=== PATIENT | female | born 1960 | race Two or more races ===

== ENCOUNTER 2024-11-21 21:41 | Inpatient (IN) | payer MEDICAID, OTHER ==
[~2024-11-21] VITALS: Ht 160 cm; Wt 58.0 kg
--- NOTE | 2024-11-21 22:30 | ED.PDOC ---
History of Present Illness HPI Comments 64 y/o F, with a history of DM, HLD, and HTN, presents with c/o hyperglycemia, today. Patient is a [place] speaker and endorses on checking and noticing her blood glucose levels being elevated, this evening, with a highest recorded value of "448." She comments on recent increase in her insulin from 26 to 30 units in addition to being instructed to to take it at night rather in the morning as before. Patient reports being asymptomatic aside from bilateral shoulder stiffness and tingling sensation to her fingers. She denies any polyuria, polydipsia, polyphagia, fever, chills, or other associated symptoms or modifiers at this time. Chief Complaint: Hyperglycemia Time Seen by MD: 22:15 Reviewed Notes: Nurses Notes, Medications, Allergies Allergies: Coded Allergies: NO KNOWN ALLERGIES (Unverified , 11/21/24) Home Meds Active Scripts Ciprofloxacin Hcl (Cipro) 500 Mg Tab, 1 TAB PO BID for 7 Days, #14 TAB Prov:OLIVERIO BLACKMON RESIDENT 11/23/24 Insulin Glargine (Basaglar Kwikpen) 100 Unit/Ml Inj, 18 UNIT SC BID for 30 Days, #4 INJ Prov:OLIVERIO BLACKMON RESIDENT 11/23/24 Reported Medications Famotidine (Famotidine) 40 Mg Tab, 1 TAB PO DAILYPRN PRN for ACID REFLUX 11/22/24 Losartan Potassium (Losartan Potassium) 50 Mg Tab, 1 TAB PO DAILY 11/22/24 Aspirin (Aspirin Low Dose) 81 Mg Tab, 1 TAB PO DAILY 11/22/24 Pravastatin Sodium (PRAVACHOL TABLET) 20 Mg Tb, 1 TAB PO DAILY 11/22/24 Metformin Hydrochloride (Metformin Hcl) 1,000 Mg Tab, 1 TAB PO BID 11/22/24 Pioglitazone Hydrochloride (PIOGLITAZONE HCL) 15 Mg Tab, 1 TAB PO DAILY 11/22/24 Discontinued Reported Medications Insulin Glargine (Basaglar Kwikpen) 100 Unit/Ml Inj, 30 UNITS SC HS 11/22/24 Information Source: Patient Mode of Arrival: Ambulatory Severity: Moderate Timing: Hours Duration: Since onset Prehospital treatment: None Past Medical History PAST MEDICAL HISTORY: DM, High Lipids, HTN Surgical History: Denies all surgeries SAFEKEEPING CLERK History: Denies all SAFEKEEPING CLERK Hx Family History Family History: Unknown Social History Smoker: Non-Smoker Alcohol: Denies ETOH Use Drugs: Denies Drug Use Lives In: Home Endocrine: reports: others (hyperglycemia ) All Other Systems: Reviewed and Negative (negative unless otherwise stated above or in HPI) Physical Exam General Appearance: No Apparent Distress, Normal HEENT: Normal ENT Inspection, Pharynx Normal, TMs Normal Neck: Full Range of Motion, Non-Tender, Normal, Normal Inspection Respiratory: Chest Non-Tender, Lungs Clear, No Accessory Muscle Use, No Respiratory Distress, Normal Breath Sounds Cardiovascular: No Edema, No JVD, No Murmur, No Gallop, Normal Peripheral Pulses, Regular Rate/Rhythm Breast Exam: Deferred Gastrointestinal: No Organomegaly, Non Tender, No Pulsatile Mass, Normal Bowel Sounds, Soft Genitalia: Deferred Pelvic: Deferred Rectal: Deferred Extremities: No calf tenderness, Normal capillary refill, Normal inspection, Normal range of motion, Non-tender, No pedal edema Musculoskeletal : Apperance: Normal Neurologic: Alert, manager program II-XII nml as Tested, No Motor Deficits, Normal Affect, Normal Mood, No Sensory Deficits Cerebellar Function: Normal Reflexes: Normal Skin: Dry, Normal Color, Warm Lymphatic: No Adenopathy Was a procedure done? Was a procedure done?: No Differential Dx Considerations may include: hyperglycemia, inappropriate medication dosage, inappropriate medication instruction X-Ray, Labs, Meds, VS Vital Signs Date Time Temp Pulse Resp B/P (MAP) Pulse Ox O2 Delivery O2 Flow Rate FiO2 11/21/24 21:57 99.2 85 14 153/58 (89) 98 99.2 Lab Test 11/21/24 23:00 11/21/24 22:35 11/21/24 00:00 Range/Units Urine Opiates Screen Neg NEGATIVE Urine Fentanyl Screen Neg NEGATIVE Urine Barbiturates Screen Neg NEGATIVE Urine Phencyclidine Screen Neg NEGATIVE Urine Amphetamines Screen Neg NEGATIVE Urine Benzodiazepines Screen Neg NEGATIVE Urine Cocaine Screen Neg NEGATIVE Urine Cannabinoids Screen Neg NEGATIVE White Blood Count 5.7 4.4-10.8 10^3/uL Red Blood Count 3.95 L 4.0-5.20 10^6/uL Hemoglobin 11.7 L 12.2-16.2 g/dL Hematocrit 34.9 L 36.0-46.0 % Mean Corpuscular Volume 88.4 80.0-100.0 fL Mean Corpuscular Hemoglobin 29.7 28.0-32.0 pg Mean Corpuscular Hemoglobin Concent 33.5 32.0-36.0 g/dL Red Cell Distribution Width 14.1 11.8-14.3 % Platelet Count 198 140-450 10^3/uL Mean Platelet Volume 9.2 6.9-10.8 fL Neutrophils (%) (Auto) 49.3 37.0-80.0 % Lymphocytes (%) (Auto) 37.6 10.0-50.0 % Monocytes (%) (Auto) 10.6 0.0-12.0 % Eosinophils (%) (Auto) 2.0 0.0-7.0 % Basophils (%) (Auto) 0.5 0.0-2.0 % Neutrophils # (Auto) 2.8 1.6-8.6 10 ^3/uL Lymphocytes # (Auto) 2.1 0.4-5.4 10 ^3/uL Monocytes # (Auto) 0.6 0-1.3 10 ^3/uL Eosinophils # (Auto) 0.1 0-0.8 10 ^3/uL Basophils # (Auto) 0 0-0.2 10 ^3/uL Nucleated Red Blood Cells 0.0 % Sodium Level 137 136-145 mmol/L Potassium Level 3.8 3.5-5.1 mmol/L Chloride Level 103 98-107 mmol/L Carbon Dioxide Level 24 20-31 mmol/L Anion Gap 10 5-15 Blood Urea Nitrogen 13 9-23 mg/dL Creatinine 0.84 0.550-1.02 mg/dL Glomerular Filtration Rate Calc 78 >90 mL/min BUN/Creatinine Ratio 15.5 10.0-20.0 Serum Glucose 451 *H 74-106 mg/dL Calcium Level 9.9 8.7-10.4 mg/dL Urine Color Colorless Yellow Urine Clarity Clear Clear Urine pH 5.5 5.0-9.0 Urine Specific [place] 1.033 1.001-1.035 Urine Protein Negative Negative Urine Ketones Negative Negative Urine Blood Negative Negative /uL Urine Nitrite 1+ H Negative Urine Bilirubin Negative Negative Urine Urobilinogen Normal Negative mg/dL Urine Leukocyte Esterase Trace Negative /uL Urine RBC 1 0 - 4 /hpf Urine Microscopic WBC 21 H 0-5 /HPF Urine Squamous Epithelial Cells Few <5 /hpf Urine Bacteria Few H None Seen /hpf Urine Mucus Few None Seen Urine Glucose 4+ H Normal mg/dL Microbiology Date/Time Source Procedure Growth Status 11/21/24 23:00 Voided Urine Urine Culture - Final Complete Time of 1ST Reevaluation: 22:45 Reevaluation 1ST: Unchanged Patient Education/Counseling: Diagnosis, Treatment Family Education/Counseling: No Family Present Departure 1 Departure Time of Disposition: 04:59 (Patient with a complicated UTI and uncontrolled diabetes) Impression: Primary Impression: Uncontrolled diabetes mellitus Qualified Codes: E11.65 - Type 2 diabetes mellitus with hyperglycemia Additional Impression: Complicated urinary tract infection Disposition: ADMITTED INPATIENT Admit to: Med Surg Condition: Serious e-Prescriptions Ciprofloxacin Hcl (Cipro) 500 Mg Tab 1 TAB PO BID for 7 Days, #14 TAB Prov: OLIVERIO BLACKMON RESIDENT 11/23/24 Insulin Glargine (Basaglar Kwikpen) 100 Unit/Ml Inj 18 UNIT SC BID for 30 Days, #4 INJ Prov: OLIVERIO BLACKMON RESIDENT 11/23/24 Critical Care Note Critical Care Time?: No Stability Stability form required: No Heart Score Heart Score: Heart Score Response (Comments) Value History N/A 0 EKG N/A 0 Age N/A 0 Risk Factors N/A 0 Troponin N/A 0 Total 0 I personally scribed for HANNAH BERMEO MD ([email or web address]) on 11/21/24 at 22:30. Electronically submitted by Augie Bean ([email or web address]). HANNAH BERMEO MD Nov 21, 2024 22:30
[2024-11-21 22:48] LABS: Basophils # (auto) 0 10 ^3/uL (0-0.2); Basophils % (auto) 0.5 % (0.0-2.0); Eosinophils # (auto) 0.1 10 ^3/uL (0-0.8); Hematocrit 34.9 % (36.0-46.0); Hemoglobin 11.7 g/dL (12.2-16.2); Lymphocytes # (auto) 2.1 10 ^3/uL (0.4-5.4); Lymphocytes % (auto) 37.6 % (10.0-50.0); Mean Corpuscular Hemoglobin 29.7 pg (28.0-32.0); Mean Corpuscular Hgb Conc. 33.5 g/dL (32.0-36.0); Mean Corpuscular Volume 88.4 fL (80.0-100.0); Monocytes # (auto) 0.6 10 ^3/uL (0-1.3); Monocytes % (auto) 10.6 % (0.0-12.0); Neutrophils # (auto) 2.8 10 ^3/uL (1.6-8.6); Neutrophils % (auto) 49.3 % (37.0-80.0); Platelet Count (auto) 198 10^3/uL (140-450); Red Blood Cells 3.95 10^6/uL (4.0-5.20); Red Cell Distribution Width 14.1 % (11.8-14.3); White Blood Cell 5.7 10^3/uL (4.4-10.8)
[2024-11-21 22:55] LABS: Chloride 103 mmol/L (98-107); Potassium 3.8 mmol/L (3.5-5.1); Sodium 137 mmol/L (136-145)
[2024-11-21 22:56] LABS: Anion Gap 10 (5-15); Carbon Dioxide 24 mmol/L (20-31)
[2024-11-21 22:57] LABS: Calcium 9.9 mg/dL (8.7-10.4)
[2024-11-21 23:01] LABS: BUN/Creatinine Ratio 15.5 (10.0-20.0); Blood Urea Nitrogen 13 mg/dL (9-23)
[2024-11-21 23:09] LABS: Glucose 451 mg/dL (74-106)
[2024-11-22] VITALS (7 sets, daily range): BP systolic 93–123; BP diastolic 45–67; PULSE 60–89; RESP 16–18; TEMP 97.7–99; O2SAT 87–100
[2024-11-22] MEDS ORDERED: ACETAMINOPHEN 325 MG TAB PO PRN (02:45)
[2024-11-22] MEDS ORDERED: HYDROcodone-ACET 5/325MG TAB PO PRN (02:45)
[2024-11-22] MEDS ORDERED: DEXTROSE (50%) 50ML SYRG IV PRN (02:45)
--- NOTE | 2024-11-22 02:54 | DVHHPRES ---
History of Present Illness Resident Creating Document: KELLY CASTREJON RESDIENT History of Present Illness This is a 64-year-old female with past medical history of diabetes type 2, dyslipidemia, hypertension who presents to ED with chief complaint of due to body shaking, blurry vision, headache and dizziness since 2 days. She also reports urinary frequency and fever. Per patient, she has a poorly controlled diabetes type 2, 2 weeks back her insulin was increased from 26 units to 30 units and shifted from morning time to evening time. Today, she checked her glucose at home which was 448 and prompted this visit. She denies nausea, vomiting, chest pain, shortness of breath, abdominal pain, or any sick contact. PMHx: Diabetes type 2, dyslipidemia, hypertension PSHx: Appendectomy Family history: Noncontributory Social history: Lives with the daughter at home, denies smoking and any other drug use Home medication: Lantus 30 units, Jardiance, pioglitazone, metformin, losartan, aspirin, simvastatin, famotidine Allergic history: No known other Patient seen and examined at the bedside. The patient is still complained of dizziness. Review of Systems Review of Systems General: Reports fever HEENT: Reports blurry vision Cardiovascular: Denies chest pain, palpitations, dyspnea on exertion, orthopnea, or claudication. Respiratory: No cough, and wheezing. Gastrointestinal: Denies nausea, vomiting, dysphagia, odynophagia, heartburn, abdominal pain, flatulence, bloating, diarrhea, constipation, change in stool, o r blood in stool. Genitourinary: Reports frequency Endocrine: No heat or cold intolerance, polydipsia, polyuria, and polyphagia. Neurological: Reports dizziness Psychiatric: Denies depression, anxiety,or insomnia. Musculoskeletal: Denies neck pain, stiffness and swelling, back pain, muscle weakness, joint pain, stiffness, swelling, or limited range of motion. Skin: No rashes, itching, skin lesion, changes in hair, nail, skin texture and breast. Hematologic/Lymphatic: Denies easy bruising, bleeding tendencies, or lymph node enlargement. Allergies: Coded Allergies: NO KNOWN ALLERGIES (Unverified , 11/21/24) Exam Vital Signs Vital Signs Date Time Temp Pulse Resp B/P (MAP) Pulse Ox O2 Delivery O2 Flow Rate FiO2 11/21/24 21:57 99.2 85 14 153/58 (89) 98 99.2 Exam General Appearance: Alert, Oriented X3, Cooperative, No acute distress HEENT: Atraumatic, PERRLA, EOMI, Mucous membrane dry, moist/pink Respiratory: Clear to auscultation, Normal air movement Cardiovascular: Regular rate, Normal S1, Normal S2, No murmurs, no chest wall tenderness Abdominal: Normal bowel sounds, Soft, No tenderness, No hepatospenomegaly, No masses Extremities: No clubbing, No cyanosis, No edema, Normal pulses, No tenderness/swelling Skin: No rashes, No breakdown, No significant lesion Neuro: Normal gait, Normal speech, Strength at 5/5 X4 ext, Normal tone, Sensation intact, Cranial nerves 3-12 NL, Reflexes 2+ Psych/Mental Status: Mental status NL, Mood NL Labs/Xrays Labs Test 11/21/24 22:35 11/21/24 00:00 Range/Units White Blood Count 5.7 4.4-10.8 10^3/uL Red Blood Count 3.95 L 4.0-5.20 10^6/uL Hemoglobin 11.7 L 12.2-16.2 g/dL Hematocrit 34.9 L 36.0-46.0 % Mean Corpuscular Volume 88.4 80.0-100.0 fL Mean Corpuscular Hemoglobin 29.7 28.0-32.0 pg Mean Corpuscular Hemoglobin Concent 33.5 32.0-36.0 g/dL Red Cell Distribution Width 14.1 11.8-14.3 % Platelet Count 198 140-450 10^3/uL Mean Platelet Volume 9.2 6.9-10.8 fL Neutrophils (%) (Auto) 49.3 37.0-80.0 % Lymphocytes (%) (Auto) 37.6 10.0-50.0 % Monocytes (%) (Auto) 10.6 0.0-12.0 % Eosinophils (%) (Auto) 2.0 0.0-7.0 % Basophils (%) (Auto) 0.5 0.0-2.0 % Neutrophils # (Auto) 2.8 1.6-8.6 10 ^3/uL Lymphocytes # (Auto) 2.1 0.4-5.4 10 ^3/uL Monocytes # (Auto) 0.6 0-1.3 10 ^3/uL Eosinophils # (Auto) 0.1 0-0.8 10 ^3/uL Basophils # (Auto) 0 0-0.2 10 ^3/uL Nucleated Red Blood Cells 0.0 % Sodium Level 137 136-145 mmol/L Potassium Level 3.8 3.5-5.1 mmol/L Chloride Level 103 98-107 mmol/L Carbon Dioxide Level 24 20-31 mmol/L Anion Gap 10 5-15 Blood Urea Nitrogen 13 9-23 mg/dL Creatinine 0.84 0.550-1.02 mg/dL Glomerular Filtration Rate Calc 78 >90 mL/min BUN/Creatinine Ratio 15.5 10.0-20.0 Serum Glucose 451 *H 74-106 mg/dL Calcium Level 9.9 8.7-10.4 mg/dL Urine Color Colorless Yellow Urine Clarity Clear Clear Urine pH 5.5 5.0-9.0 Urine Specific [place] 1.033 1.001-1.035 Urine Protein Negative Negative Urine Ketones Negative Negative Urine Blood Negative Negative /uL Urine Nitrite 1+ H Negative Urine Bilirubin Negative Negative Urine Urobilinogen Normal Negative mg/dL Urine Leukocyte Esterase Trace Negative /uL Urine RBC 1 0 - 4 /hpf Urine Microscopic WBC 21 H 0-5 /HPF Urine Squamous Epithelial Cells Few <5 /hpf Urine Bacteria Few H None Seen /hpf Urine Mucus Few None Seen Urine Glucose 4+ H Normal mg/dL Assessment/Plan Assessment/Plan Complicated UTI UA presents positive nitrites, esterase and white blood cells Stopped Jardiance, due to UTI Urine culture Empiric antibiotic, ceftriaxone IV fluid Uncontrolled diabetes type 2, with simple hyperglycemia (hemoglobin A1c 13.6%) Lantus 30 units Insulin according to moderate SS Discontinued p.o. medication since patient is admitted in the hospital. Hypertension Dyslipidemia Continue medicine, losartan and atorvastatin Mild anemia, normocytic normochromic Monitor H&H DIET: Diabetic diet DVT PROPHYLAXIS: Prophylactic Lovenox GI PROPHYLAXIS:: Protonix CODE STATUS: Goal of care discussed for more than 21 minutes, DNR DISPOSITION: Med/surg Patient's status and plan discussed with the patient and the patient's granddaughter at the bedside. Case discussed with Dr. Bates. Plan discussed with: Patient, Other (RN) My Orders Orders - KELLY CASTREJON RESDIAGNES Procedure Category Date Status Time Admit ADMIT 11/22/24 Transmitted 02:45 Code Status CODE 11/22/24 Transmitted 02:45 Vital Signs BIGG 11/22/24 Transmitted 02:45 Review Orders With [facility] 11/22/24 Transmitted Adm. 02:45 Consistent DIET 11/22/24 Transmitted Carb(Ccho)Diabetes Breakfast Acetaminophen Tablet PHA 11/22/24 Transmitted (Tylenol Tablet) 02:45 Notify Md Of Changes [facility] 11/22/24 Transmitted From Base 02:45 Advance Directive BIGG 11/22/24 Transmitted 02:45 Basic Metabolic Panel LAB 11/22/24 Transmitted 02:45 Complete Blood Count LAB 11/22/24 Transmitted 02:45 Lipid Panel LAB 11/22/24 Transmitted 02:45 Urine Bacterial GREGORIA 11/22/24 Transmitted Culture 02:45 Patient Condition ORDERS 11/22/24 Transmitted 02:45 Allergies BIGG 11/22/24 Transmitted 02:45 Hydrocodone-Acet PHA 11/22/24 Transmitted 5/325mg Tab ([place] 02:45 Drug Screen LAB 11/22/24 Transmitted 02:45 Hemoglobin A1c LAB 11/22/24 Transmitted 02:45 Lovenox 40mg PHA 11/22/24 Transmitted 10:00 Stat Ekg For Chest BIGG 11/22/24 Transmitted Pain 02:45 Notify Md Of Changes [facility] 11/22/24 Transmitted From Base 02:45 Insulin Lantus PHA 11/22/24 Transmitted (Glargine) (Lantus) 22:00 Insulin Lantus PHA 11/22/24 Transmitted (Glargine) (Lantus) 02:45 Metformin PHA 11/22/24 Transmitted Hydrochloride 02:45 Metformin PHA 11/22/24 Transmitted Hydrochloride 08:00 Pioglitazone Hcl PHA 11/22/24 Transmitted Tablet (Actos Tablet) 10:00 Pioglitazone Hcl PHA 11/22/24 Transmitted Tablet (Actos Tablet) 02:45 Losartan Tablet PHA 11/22/24 Transmitted (Cozaar Tablet) 10:00 Aspirin Tablet PHA 11/22/24 Transmitted 02:45 Aspirin Tablet PHA 11/22/24 Transmitted 10:00 Pantoprazole PHA 11/22/24 Transmitted (Protonix) 10:00 Ceftriaxone Ivpb PHA 11/22/24 Transmitted Rocephin 09:00 Glucose Blood PHA 11/22/24 Transmitted (Accu-Chek Comfort 07:00 Bedtime Insulin Scale PHA 11/22/24 Transmitted 22:00 Moderate Insulin Ss PHA 11/22/24 Transmitted 07:00 Dextrose 50% Syringe PHA 11/22/24 Transmitted 02:45 Accucheck BD 11/22/24 Transmitted 02:45 Electrocardigram EKG 11/22/24 Transmitted 02:45 Magnesium LAB 11/22/24 Transmitted 02:45 Drug Screen LAB 11/22/24 Transmitted 02:45 Date of Service: Nov 22, 2024 Billing Provider: AZALEA BATES MD Common Visit Codes: [id number] INP/OBS CARE (HIGH) KELLY CASTREJON RESDIENT Nov 22, 2024 02:54 LORENZO LABOY RESIDENT Nov 22, 2024 05:13 AZALEA BATES MD Nov 22, 2024 18:02
[2024-11-22] MEDS: SODIUM CHLORIDE 0.9% 1,000 ML IV ONE (02:57)
[2024-11-22] MEDS: InsuLIN REG 1unit/0.01ml Soln (100units/ml) IV ONE (03:13)
[2024-11-22 03:37] LABS: Amphetamine Screen, Urine Neg (NEGATIVE); Barbiturate Scree,Urine Neg (NEGATIVE); Benzodiazephine Screen, Urine Neg (NEGATIVE); Cannabinoid Screen, Urine Neg (NEGATIVE); Cocaine Screen, Urine Neg (NEGATIVE); Opiate Scree,Urine Neg (NEGATIVE); Phencyclidine Screen, Urine Neg (NEGATIVE)
[2024-11-22] MEDS: cefTRIAXone 1GM/50ML D5W 50 ML IV ONE (04:09)
[2024-11-22] MEDS: metFORMIN HYDROCHLORIDE 500 MG TAB PO ONE (04:09)
[2024-11-22] MEDS: PIOGLITAZONE HYDROCHLORIDE 30 MG TAB PO ONE (04:09)
[2024-11-22] MEDS: ASPirin 81 mg TAB PO ONE (04:09)
[2024-11-22] MEDS: INSULIN LANTUS (GLARGINE) 1 /0.01ml (100units/ml) SC ONE (04:10)
[2024-11-22] MEDS: ATORVASTATIN 20 MG TAB PO ONE (04:10)
[2024-11-22 04:19] LABS: Basophils # (auto) 0 10 ^3/uL (0-0.2); Basophils % (auto) 0.4 % (0.0-2.0); Eosinophils # (auto) 0.1 10 ^3/uL (0-0.8); Eosinophils % (auto) 2.2 % (0.0-7.0); Hematocrit 34.2 % (36.0-46.0); Lymphocytes # (auto) 2.6 10 ^3/uL (0.4-5.4); Lymphocytes % (auto) 43.9 % (10.0-50.0); Mean Corpuscular Hemoglobin 28.3 pg (28.0-32.0); Mean Corpuscular Hgb Conc. 32.3 g/dL (32.0-36.0); Mean Corpuscular Volume 87.8 fL (80.0-100.0); Monocytes # (auto) 0.6 10 ^3/uL (0-1.3); Monocytes % (auto) 10.2 % (0.0-12.0); Neutrophils # (auto) 2.5 10 ^3/uL (1.6-8.6); Neutrophils % (auto) 43.3 % (37.0-80.0); Nucleated Red Blood Cells % 0.1 %; Platelet Count (auto) 192 10^3/uL (140-450); Red Blood Cells 3.89 10^6/uL (4.0-5.20); Red Cell Distribution Width 13.8 % (11.8-14.3); White Blood Cell 5.8 10^3/uL (4.4-10.8)
[2024-11-22 04:38] LABS: BUN/Creatinine Ratio 15.1 (10.0-20.0); Blood Urea Nitrogen 11 mg/dL (9-23)
[2024-11-22 04:39] LABS: LDL Cholesterol 70 mg/dL (< 100); Magnesium 1.7 mg/dL (1.6-2.6)
[2024-11-22 04:40] LABS: Cholesterol 137 mg/dL (< 200); HDL Cholesterol 46 mg/dL (40-59)
[2024-11-22 04:41] LABS: Sodium 142 mmol/L (136-145)
[2024-11-22 04:43] LABS: Anion Gap 8 (5-15)
[2024-11-22 04:46] LABS: Carbon Dioxide 25 mmol/L (20-31); Chloride 109 mmol/L (98-107); Potassium 3.5 mmol/L (3.5-5.1)
[2024-11-22 04:48] LABS: Glucose 212 mg/dL (74-106); Triglycerides 150 mg/dL (< 150)
[2024-11-22] MEDS: POTASSIUM EFFERVESENT TAB 25 MEQ PO ONE (05:25)
[2024-11-22] MEDS: MAGNESIUM SULFATE 1GM/100ML 100 ML IV ONE (05:25)
[2024-11-22] MEDS: SODIUM CHLORIDE 0.9% 1,000 ML IV SCH (05:32)
[2024-11-22] MEDS ORDERED: METF-372 PO (06:23)
[2024-11-22] MEDS ORDERED: LOSA-534 PO (06:23)
[2024-11-22] MEDS ORDERED: PIOG1TAB36 PO (06:23)
[2024-11-22] MEDS ORDERED: PRAV20TA3 PO (06:23)
[2024-11-22] MEDS ORDERED: ASPI-325 PO (06:23)
[2024-11-22] MEDS ORDERED: FAMO40TA7 PO (06:23)
[2024-11-22] MEDS ORDERED: INSU1INJ19 SC (06:25)
[2024-11-22] MEDS: InsuLIN REG 1unit/0.01ml Soln (100units/ml) SC SCH ×2 (06:50→22:00)
[2024-11-22] MEDS: ACCU-CHEK COMFORT CURVE STRIP VI SCH (06:52)
[2024-11-22] MEDS ORDERED: metFORMIN HYDROCHLORIDE 500 MG TAB PO SCH (08:00)
[2024-11-22] MEDS: ENOXAPARIN SOD 40 MG/0.4 ML SYRINGE SC SCH (09:02)
[2024-11-22] MEDS: PANTOPRAZOLE 40 MG/10 ML VIAL INJ IV SCH (09:02)
[2024-11-22] MEDS: LOSARTAN POTASSIUM 25 MG TAB PO SCH (09:03)
[2024-11-22 09:11] LABS: Erythrocyte Sedimentation Rate 6 mm/hr (0-20)
--- NOTE | 2024-11-22 17:22 | DVHPNRES ---
Progress Note Date Seen: Nov 22, 2024 Resident Creating Document: OLIVERIO BLACKMON RESIDENT Has the PT tested + for MRSA If YES, has PT been informed?: No Medical Necessity Reason Pt with a Central, PICC or Fol: No Subjective Review of Systems This is a 64-year-old female with past medical history of diabetes type 2, dyslipidemia, hypertension who presents to ED with chief complaint of due to body shaking, blurry vision, headache and dizziness since 2 days. She also reports urinary frequency and fever. Per patient, she has a poorly controlled diabetes type 2, 2 weeks back her insulin was increased from 26 units to 30 units and shifted from morning time to evening time. Today, she checked her glucose at home which was 448 and prompted this visit. She denies nausea, vomiting, chest pain, shortness of breath, abdominal pain, or any sick contact. PMHx: Diabetes type 2, dyslipidemia, hypertension PSHx: Appendectomy Family history: Noncontributory Social history: Lives with the daughter at home, denies smoking and any other drug use Home medication: Lantus 30 units, Jardiance, pioglitazone, metformin, losartan, aspirin, simvastatin, famotidine Allergic history: No known other Objective vital signs Vital Sign Date Time Temp Pulse Resp B/P (MAP) Pulse Ox O2 Delivery O2 Flow Rate FiO2 11/22/24 13:00 97.9 73 16 106/61 (76) 97 97.9 11/22/24 06:41 Room Air* 0 21 Total Intake and Output 11/21/24 11/21/24 11/22/24 15:00 23:00 07:00 Intake Total 1050 ml Balance 1050 ml medications Current Medications Medications Dose Ordered Sig/Shi Route Start Time Stop Time Status Last Admin Dose Admin Acetaminophen 650 mg Q6HP PRN PO 11/22/24 02:45 Acetaminophen/ Hydrocodone Bitart 1 tab Q4HP PRN PO 11/22/24 02:45 Enoxaparin Sodium 40 mg DAILY SC 11/22/24 10:00 11/22/24 09:02 40 MG Losartan Potassium 25 mg DAILY PO 11/22/24 10:00 11/22/24 09:03 25 MG Aspirin 81 mg DAILY PO 11/23/24 10:00 Pantoprazole Sodium 40 mg DAILY IV 11/22/24 10:00 11/22/24 09:02 40 MG Ceftriaxone Sodium 50 ml @ 100 mls/hr DAILY@09 IV 11/23/24 09:00 Diagnostic Test (Pha) 1 strip ACHS 11/22/24 07:00 11/22/24 17:10 1 STRIP Insulin Human Regular HS SC 11/22/24 22:00 Insulin Human Regular AC SC 11/22/24 07:00 11/22/24 17:10 2 UNITS Dextrose 50 ml UD PRN IV 11/22/24 02:45 Atorvastatin Calcium 40 mg HS PO 11/22/24 22:00 Sodium Chloride 1,000 ml @ 60 mls/hr [id number] IV 11/22/24 05:30 11/22/24 05:32 60 MLS/HR Insulin Glargine 18 units BID@0700,2200 SC 11/23/24 10:00 Examination General Appearance: Alert, Oriented X3, Cooperative, No acute distress HEENT: Atraumatic, PERRLA, EOMI, Mucous membrane dry, moist/pink Respiratory: Clear to auscultation, Normal air movement Cardiovascular: Regular rate, Normal S1, Normal S2, No murmurs, no chest wall tenderness Abdominal: Normal bowel sounds, Soft, No tenderness, No hepatospenomegaly, No masses Extremities: No clubbing, No cyanosis, No edema, Normal pulses, No tenderness/swelling Skin: No rashes, No breakdown, No significant lesion Neuro: Normal gait, Normal speech, Strength at 5/5 X4 ext, Normal tone, Sensation intact, Cranial nerves 3-12 NL, Reflexes 2+ Psych/Mental Status: Mental status NL, Mood NL laboratory and microbiology Laboratory Tests 11/22/24 03:58 Test 11/22/24 03:58 Range/Units Serum Glucose 212 H 74-106 mg/dL Problem List/Assessment/Plan Problem List/Assessment/Plan Complicated UTI UA presents positive nitrites, esterase and white blood cells Stopped Jardiance, due to UTI Urine culture Empiric antibiotic, ceftriaxone IV fluid 60cc/h Uncontrolled diabetes type 2, with simple hyperglycemia (hemoglobin A1c 13.6%) Lantus 35 units once today, tomorrow lantus 18ui bid Insulin according to moderate SS Discontinued p.o. medication since patient is admitted in the hospital. Hypertension Dyslipidemia Continue medicine, losartan and atorvastatin Mild anemia, normocytic normochromic Monitor H&H DIET: Diabetic diet DVT PROPHYLAXIS: Prophylactic Lovenox GI PROPHYLAXIS:: Protonix CODE STATUS: Goal of care discussed for more than 21 minutes, DNR DISPOSITION: Med/surg Patient's status and plan discussed with the patient and the patient's granddaughter at the bedside. Case discussed with Dr. Carmichael Plan discussed with: Patient, Other (rn) My Orders My Orders Orders - OLIVERIO BLACKMON Procedure Category Date Status Time Insulin Lantus PHA 11/23/24 In Process (Glargine) (Lantus) 10:00 Date of Service: Nov 22, 2024 Billing Provider: KRISTINE CARMICHAEL DO Common Visit Codes: [id number] INP/OBS CARE(HIGH) OLIVERIO BLACKMON Nov 22, 2024 17:22 KRISTINE CARMICHAEL DO Dec 01, 2024 06:40
--- NOTE | 2024-11-22 20:14 | DVH ---
CHEST RADIOGRAPH Indication: dyspnea Technique: Single frontal view of the chest was obtained COMPARISON: None FINDINGS: Lines and Tubes: None Lungs: Clear Pleura: No effusion. No pneumothorax. Cardiomediastinal contours: Unremarkable Bones: Unremarkable IMPRESSION: No abnormality.
[2024-11-22] MEDS ORDERED: INSULIN LANTUS (GLARGINE) 1 /0.01ml (100units/ml) SC SCH ×2 (22:00)
[2024-11-22] MEDS: ATORVASTATIN 20 MG TAB PO SCH (22:00)
[2024-11-23] VITALS (7 sets, daily range): BP systolic 94–133; BP diastolic 47–66; PULSE 55–82; RESP 15–17; TEMP 97.4–98.8; O2SAT 90–99
[2024-11-23 06:01] LABS: Basophils # (auto) 0 10 ^3/uL (0-0.2); Basophils % (auto) 0.6 % (0.0-2.0); Eosinophils # (auto) 0.1 10 ^3/uL (0-0.8); Eosinophils % (auto) 2.4 % (0.0-7.0); Hematocrit 33.5 % (36.0-46.0); Hemoglobin 11.2 g/dL (12.2-16.2); Lymphocytes # (auto) 2.4 10 ^3/uL (0.4-5.4); Mean Corpuscular Hemoglobin 29.3 pg (28.0-32.0); Mean Corpuscular Hgb Conc. 33.6 g/dL (32.0-36.0); Mean Corpuscular Volume 87.3 fL (80.0-100.0); Monocytes # (auto) 0.6 10 ^3/uL (0-1.3); Monocytes % (auto) 9.6 % (0.0-12.0); Neutrophils # (auto) 2.8 10 ^3/uL (1.6-8.6); Neutrophils % (auto) 46.4 % (37.0-80.0); Nucleated Red Blood Cells % 0.1 %; Platelet Count (auto) 183 10^3/uL (140-450); Red Blood Cells 3.84 10^6/uL (4.0-5.20); White Blood Cell 5.9 10^3/uL (4.4-10.8)
[2024-11-23 06:15] LABS: INR 0.96 (0.9-1.15); Partial Thromboplastin Time 22.5 SEC (24.5-34.5); Prothrombin Time 10.2 sec (9.3-11.8)
[2024-11-23 06:17] LABS: Alanine Aminotransferase 13 U/L (7-40); Albumin 3.3 g/dL (3.2-4.8); Alkaline Phosphatase 68 U/L (46-116); Anion Gap 7 (5-15); BUN/Creatinine Ratio 11.6 (10.0-20.0); Calcium 8.8 mg/dL (8.7-10.4); Carbon Dioxide 24 mmol/L (20-31); Cholesterol 127 mg/dL (< 200); HDL Cholesterol 42 mg/dL (40-59); LDL Cholesterol 66 mg/dL (< 100); Magnesium 1.8 mg/dL (1.6-2.6); Sodium 140 mmol/L (136-145)
[2024-11-23 06:18] LABS: Bilirubin, Total 0.6 mg/dL (0.2-1.0)
[2024-11-23 06:20] LABS: Aspartate Aminotransferase 13 U/L (13-40); Blood Urea Nitrogen 8 mg/dL (9-23); Chloride 109 mmol/L (98-107); Glucose 219 mg/dL (74-106); Total Protein 5.4 g/dL (5.7-8.2); Triglycerides 155 mg/dL (< 150)
[2024-11-23] MEDS: cefTRIAXone 1GM/50ML D5W 50 ML IV SCH (09:24)
[2024-11-23] MEDS: ASPirin 81 mg TAB PO SCH (09:35)
[2024-11-23] MEDS: INSULIN LANTUS (GLARGINE) 1 /0.01ml (100units/ml) SC SCH (09:37)
[2024-11-23] MEDS ORDERED: CIPR-173 PO (09:47)
[2024-11-23] MEDS ORDERED: INSU1INJ19 SC (09:47)
[2024-11-23] MEDS ORDERED: PIOGLITAZONE HYDROCHLORIDE 30 MG TAB PO SCH (10:00)
[2024-11-23] MEDS: InsuLIN REG 1unit/0.01ml Soln (100units/ml) SC SCH (11:06)
[2024-11-23] MEDS: ACCU-CHEK COMFORT CURVE STRIP VI SCH (11:07)
--- NOTE | 2024-11-23 12:59 | DVHDSRES ---
Discharge Summary Date of Admission Resident Creating Document: OLIVERIO BLACKMON RESIDENT Nov 22, 2024 at 02:45 Date of Discharge: Nov 23, 2024 Admitting Diagnosis Complicated UTI Uncontrolled diabetes type 2, with simple hyperglycemia (hemoglobin A1c 13.6%) Labs/Diagnostic Data: Laboratory Results Test 11/23/24 11:05 11/23/24 05:29 11/22/24 03:58 11/21/24 23:00 POC Glucose 230 mg/dl (70-106) White Blood Count 5.9 10^3/uL (4.4-10.8) Red Blood Count 3.84 10^6/uL (4.0-5.20) Hemoglobin 11.2 g/dL (12.2-16.2) Hematocrit 33.5 % (36.0-46.0) Mean Corpuscular Volume 87.3 fL (80.0-100.0) Mean Corpuscular Hemoglobin 29.3 pg (28.0-32.0) Mean Corpuscular Hemoglobin Concent 33.6 g/dL (32.0-36.0) Red Cell Distribution Width 14.0 % (11.8-14.3) Platelet Count 183 10^3/uL (140-450) Mean Platelet Volume 8.9 fL (6.9-10.8) Neutrophils (%) (Auto) 46.4 % (37.0-80.0) Lymphocytes (%) (Auto) 41.0 % (10.0-50.0) Monocytes (%) (Auto) 9.6 % (0.0-12.0) Eosinophils (%) (Auto) 2.4 % (0.0-7.0) Basophils (%) (Auto) 0.6 % (0.0-2.0) Neutrophils # (Auto) 2.8 10 ^3/uL (1.6-8.6) Lymphocytes # (Auto) 2.4 10 ^3/uL (0.4-5.4) Monocytes # (Auto) 0.6 10 ^3/uL (0-1.3) Eosinophils # (Auto) 0.1 10 ^3/uL (0-0.8) Basophils # (Auto) 0 10 ^3/uL (0-0.2) Nucleated Red Blood Cells 0.1 % Prothrombin Time 10.2 sec (9.3-11.8) Prothrombin Time INR 0.96 (0.9-1.15) Activated Partial Thromboplast Time 22.5 SEC (24.5-34.5) Sodium Level 140 mmol/L (136-145) Potassium Level 4.0 mmol/L (3.5-5.1) Chloride Level 109 mmol/L (98-107) Carbon Dioxide Level 24 mmol/L (20-31) Anion Gap 7 (5-15) Blood Urea Nitrogen 8 mg/dL (9-23) Creatinine 0.69 mg/dL (0.550-1.02) Glomerular Filtration Rate Calc 97 mL/min (>90) BUN/Creatinine Ratio 11.6 (10.0-20.0) Serum Glucose 219 mg/dL (74-106) Calcium Level 8.8 mg/dL (8.7-10.4) Magnesium Level 1.8 mg/dL (1.6-2.6) Total Bilirubin 0.6 mg/dL (0.2-1.0) Aspartate Amino Transferase (AST) 13 U/L (13-40) Alanine Aminotransferase (ALT) 13 U/L (7-40) Alkaline Phosphatase 68 U/L (46-116) Total Protein 5.4 g/dL (5.7-8.2) Albumin 3.3 g/dL (3.2-4.8) Triglycerides Level 155 mg/dL (< 150) Cholesterol Level 127 mg/dL (< 200) LDL Cholesterol 66 mg/dL (< 100) HDL Cholesterol 42 mg/dL (40-59) Thyroid Stimulating Hormone (TSH) 1.78 uIU/mL (0.55-4.78) Erythrocyte Sedimentation Rate 6 mm/hr (0-20) Hemoglobin A1c 13.6 % A1C (<5.7) C-Reactive Protein High Sensitivity < 0.02 mg/dL (<1.0) Urine Opiates Screen Neg (NEGATIVE) Urine Fentanyl Screen Neg (NEGATIVE) Urine Barbiturates Screen Neg (NEGATIVE) Urine Phencyclidine Screen Neg (NEGATIVE) Urine Amphetamines Screen Neg (NEGATIVE) Urine Benzodiazepines Screen Neg (NEGATIVE) Urine Cocaine Screen Neg (NEGATIVE) Urine Cannabinoids Screen Neg (NEGATIVE) Test 11/21/24 00:00 Urine Color Colorless (Yellow) Urine Clarity Clear (Clear) Urine pH 5.5 (5.0-9.0) Urine Specific Mcgraw 1.033 (1.001-1.035) Urine Protein Negative (Negative) Urine Ketones Negative (Negative) Urine Blood Negative /uL (Negative) Urine Nitrite 1+ (Negative) Urine Bilirubin Negative (Negative) Urine Urobilinogen Normal mg/dL (Negative) Urine Leukocyte Esterase Trace /uL (Negative) Urine RBC 1 /hpf (0 - 4) Urine Microscopic WBC 21 /HPF (0-5) Urine Squamous Epithelial Cells Few /hpf (<5) Urine Bacteria Few /hpf (None Seen) Urine Mucus Few (None Seen) Urine Glucose 4+ mg/dL (Normal) Other Laboratory Tests 11/23/24 05:29 Brief Hx & Hospital Course: This is a 64-year-old female with a history of type 2 diabetes mellitus, dyslipidemia, and hypertension who was admitted for evaluation of body shaking, blurry vision, headache, dizziness, and hyperglycemia. Initial workup revealed a complicated urinary tract infection (UTI) with positive nitrites, leukocyte esterase, and white blood cells in the urine. She was started on empiric ceftriaxone and IV fluids. Given her poor glycemic control (HbA1c 13.6%), her home Jardiance was discontinued, and insulin therapy was adjusted accordingly. Her hypertension and dyslipidemia medications were continued. Additionally, mild normocytic normochromic anemia was noted, and hemoglobin levels were monitored during her stay. During hospitalization, the patients symptoms improved with IV antibiotics and hydration. She was transitioned to oral ciprofloxacin for continued treatment of UTI and discharged on an adjusted insulin regimen with Lantus 18 units BID. She is advised to follow up in the discharge clinic for further management of her diabetes and hypertension. General Appearance: Alert, Oriented X3, Cooperative, No acute distress HEENT: Atraumatic, PERRLA, EOMI, Mucous membrane dry, moist/pink Respiratory: Clear to auscultation, Normal air movement Cardiovascular: Regular rate, Normal S1, Normal S2, No murmurs, no chest wall tenderness Abdominal: Normal bowel sounds, Soft, No tenderness, No hepatospenomegaly, No masses Extremities: No clubbing, No cyanosis, No edema, Normal pulses, No tenderness/swelling Skin: No rashes, No breakdown, No significant lesion Neuro: Normal gait, Normal speech, Strength at 5/5 X4 ext, Normal tone, Sensation intact, Cranial nerves 3-12 NL, Reflexes 2+ Psych/Mental Status: Mental status NL, Mood NL Case discussed with Dr Carmichael Operations or Procedures CHEST RADIOGRAPH Indication: dyspnea Technique: Single frontal view of the chest was obtained COMPARISON: None FINDINGS: Lines and Tubes: None Lungs: Clear Pleura: No effusion. No pneumothorax. Cardiomediastinal contours: Unremarkable Bones: Unremarkable IMPRESSION: No abnormality. Condition at Discharge: Stable Final Diagnosis/Problems List Complicated UTI Uncontrolled diabetes type 2, with simple hyperglycemia (hemoglobin A1c 13.6%) Hypertension Mild anemia, normocytic normochromic Discharge Disposition: Home Discharge Instruct/Medications Diet: Consistent carbohydrate Activity: Light activity Follow Up/Referral: [facility] with sugar readings Medications: See prescription Discharge Statement: "Patient was advised to return to the ER or call 911 if any headaches, dizziness, shortness of breath, chest pain, abdominal pain, bleeding, fevers, or worsening of medical condition. Patient was counseled about treatment plan, medications, possible side effects, patientverbalized understanding. All questions were answered to the best of my ability. This discharge took greater then 30 minutes in planning, reviewing documentation, counseling the patient, and discussing with other team members." ASSESSMENT ASSESSMENT Assessment hyperglycemia UTI Date of Service: Nov 23, 2024 Billing Provider: KRISTINE ACRMICHAEL DO Common Visit Codes: 68960-[facility]/OBS DISCH DAY >30min OLIVERIO BLACKMON RESIDENT Nov 23, 2024 12:58 KRISTINE CARMICHAEL DO Dec 01, 2024 06:41
== END 2024-11-23 17:20 | disposition home or self-care (01) | DRG 463 ==
LOC: ER 21:41 → OVERFLOW 11-22 02:45 → WEST WING 11-22 21:44
PROVIDERS: ADMIT Internal Medicine; ATTEND Emergency Medicine
DX: N39.0 Urinary tract infection, site not specified (principal); D64.9 Anemia, unspecified; E11.65 Type 2 diabetes mellitus with hyperglycemia; E78.5 Hyperlipidemia, unspecified; I10 Essential (primary) hypertension; Z79.4 Long term (current) use of insulin; Z79.899 Other long term (current) drug therapy
CPT/HCPCS: 36415; 71045; 80048; 80053; 80061; 80307; 81001; 82962; 83036; 83735; 84443; 85025; 85610; 85652; 85730; 86141; 87086; G0378; J1815; J2470